=== PATIENT | female | born 1995 | race American Indian/Alaskan Native ===

== ENCOUNTER 2023-08-20 22:15 | Emergency (ER) | payer SELFPAY ==
[2023-08-20 22:21] VITALS: BP 119/70; PULSE 84; RESP 18; TEMP 37.1; O2SAT 100; BMI 21.2
--- NOTE | 2023-08-20 23:48 | ED.RECABL ---
HPI - Recheck/Abnormal Lab/Rx General Chief Complaint: Recheck/Abnormal Lab/Rx Stated Complaint: UTI/RASH Time Seen by Provider: 08/20/23 23:48 Source: patient Mode of arrival: Ambulatory History of Present Illness HPI narrative: 27-year-old woman who was recently diagnosed with lichen simplex chronicus affecting her vagina, bacterial vaginosis and urinary tract infection. She was prescribed metronidazole which she has finished, Keflex which he is completing and given a prescription for triamcinolone 0.1% cream which she left in [place] when she came home today. She is here requesting refill for the triamcinolone cream. She states that the vaginal discharge and dysuria have improved significantly. The triamcinolone cream was helping with the itching and scaling that has been attributed to the lichen simplex chronicus. She is denying fevers, abdominal pain, flank pain. She has paperwork from her visit at the [facility] with diagnoses and medications prescribed. Related Data Previous Rx's Medication Instructions Recorded triamcinolone acetonide 0.1 % 1 applic topical DAILY #15 grams 08/20/23 topical cream Allergies Allergy/AdvReac Type Severity Reaction Status Date / Time No Known Drug Allergies Allergy Verified 08/20/23 22:21 Review of Systems Review of Systems Narrative: Pertinent positive and negative findings as per HPI Patient History Medical History (Updated 08/20/23 @ 23:57 by Marce Sharma MD) Lichen simplex chronicus Social History Smoking Status: Current every day smoker Smoking Status: Current every day smoker tobacco type: vaping Substance Use Type: does not use Exam Initial Vital Signs Initial Vital Signs: Vital Signs Temperature 98.7 F 08/20/23 22:21 Pulse Rate 84 08/20/23 22:21 Respiratory Rate 18 08/20/23 22:21 Blood Pressure 119/70 08/20/23 22:21 Pulse Oximetry 100 08/20/23 22:21 Oxygen Delivery Method Room Air 08/20/23 22:21 General: Alert appropriate in no acute distress Respiratory: Able to speak in full sentences, no obvious respiratory distress Skin: No obvious rashes, warm and dry Neurologic: Grossly intact no obvious asymmetries or abnormalities Psych: appropriate insight and affect, cooperative Course Vital Signs Vital signs: Vital Signs - 8 hr 08/20/23 22:21 Temperature 98.7 F Pulse Rate 84 Respiratory Rate 18 Blood Pressure 119/70 Pulse Oximetry 100 Oxygen Delivery Method Room Air MDM - Recheck/Abnormal Lab/Rx MDM Narrative Medical decision making narrative: 27-year-old woman recently visiting her family in [facility] treated for cystitis, bacterial vaginosis and lichen simplex chronicus. All were improving however when she came home she forgot the triamcinolone cream and presents requesting refill for such. Records from her clinic visit from August 16 are reviewed. Will refill her triamcinolone prescription and asked her to follow up with her primary care provider. She is safe for discharge Discharge Plan Departure Patient Disposition: Home Clinical Impression: Encounter for medication refill, Lichen simplex chronicus Instructions: DI for Lichen Planus Activity Restrictions/Additional Instructions: Thank you for coming in today I am glad that the antibiotics for the bladder infection and bacterial vaginosis been effective. I am also pleased with triamcinolone seems to be effective with the itching that you have been experiencing for the last 3 months. I have sent a prescription to [email or web address] in [place] with a single refill. I would encourage you to follow up with your primary care physician if you find that the symptoms are not improving or return. Prescriptions: New triamcinolone acetonide 0.1 % cream 1 applic topical DAILY Qty: 15 1RF Referrals: Miscellaneous,Doctor, [Primary Care Provider] - Stand Alone Forms: Patient Portal/API
== END 2023-08-21 00:04 | disposition home or self-care (01) ==
PROVIDERS: Emergency Provider Emergency Medicine
DX: L28.0 Lichen simplex chronicus (principal)
CPT/HCPCS: 99281

== ENCOUNTER 2023-11-25 23:43 | Emergency (ER) | payer OTHER, SELFPAY ==
[2023-11-25 23:48] VITALS: BP 125/71; PULSE 110; RESP 20; TEMP 36.7; O2SAT 100; BMI 22.1
--- NOTE | 2023-11-25 23:55 | DI.RAD.S_ITS ---
PROCEDURE: XR FOOT RT MIN 3V INDICATIONS: pain and swelling TECHNIQUE: 3 views of the foot were acquired. COMPARISON: [facility], CR, XR ANKLE RT MIN 3V, 11/26/2023, 0:18. FINDINGS: Bones: No fractures or dislocations. No suspicious bony lesions. Soft tissues: Generalized soft tissue swelling can be seen proximally. IMPRESSION: Generalized soft tissue swelling can be seen proximally. No focal bony abnormality can be seen of the foot. Dictated by: Demar Red M.D. on 11/25/2023 at 23:37 Approved by: Demar Red M.D. on 11/25/2023 at 23:38
--- NOTE | 2023-11-25 23:55 | DI.RAD.S_ITS ---
PROCEDURE: XR ANKLE RT MIN 3V INDICATIONS: pain and swelling TECHNIQUE: 3 views of the ankle were acquired. COMPARISON: [facility], , XR FOOT RT MIN 3V, 11/26/2023, 0:18. FINDINGS: Bones: No fractures or dislocations. Ankle mortise is normally aligned. No suspicious bony lesions. The talar dome demonstrates no maddy abnormality. Soft tissues: Generalized soft tissue swelling can be seen of the ankle. IMPRESSION: Soft tissue swelling is seen, without an acute bony abnormality seen by plain film. If there is point tenderness (or other clinical suspicion for a fracture not seen on these images) then a dedicated CT or a short-term followup plain film series could be considered for further evaluation, as clinically appropriate. Dictated by: Demar Red M.D. on 11/25/2023 at 23:38 Approved by: Demar Red M.D. on 11/25/2023 at 23:38
--- NOTE | 2023-11-26 00:20 | ED.LOWEXIN ---
HPI - Extremity Injury (Lower) General Chief Complaint: Extremity Injury, Lower Stated Complaint: rt ankle pain Time Seen by Provider: 11/25/23 23:45 Source: patient Mode of arrival: Ambulatory History of Present Illness HPI Narrative: 27-year-old female with no reported past medical history presents for 1 week of atraumatic right ankle pain. No medications taken prior to arrival. Has become progressively more painful and so she was presenting for evaluation. Denies accident or injury. Related Data Previous Rx's Medication Instructions Recorded triamcinolone acetonide 0.1 % 1 applic topical DAILY #15 grams 08/20/23 topical cream doxycycline hyclate 100 mg capsule 100 mg PO BID #14 caps 11/26/23 Allergies Allergy/AdvReac Type Severity Reaction Status Date / Time No Known Drug Allergies Allergy Verified 08/20/23 22:21 Review of Systems Review of Systems Narrative: See HPI Patient History Medical History Lichen simplex chronicus Social History Smoking Status: Current every day smoker Smoking Status: Current every day smoker tobacco type: vaping Substance Use Type: does not use Exam Initial Vital Signs Initial Vital Signs: Vital Signs Temperature 98.1 F 11/25/23 23:48 Pulse Rate 110 H 11/25/23 23:48 Respiratory Rate 20 11/25/23 23:48 Blood Pressure 125/71 11/25/23 23:48 Pulse Oximetry 100 11/25/23 23:48 Oxygen Delivery Method Room Air 11/25/23 23:48 Const: Awake, alert, no acute distress, nontoxic appearing Cardiac: regular rate, regular rhythm RESP: unlabored, clear bilaterally, no wheezing GI: Soft, nontender, nondistended, no rebound, no guarding MSK: swelling R ankle particularly over lateral ankle. Tender to palpation medial ankle Skin: Bilateral tender nodular lesions on lower extremities extending to mid thigh. No rash or lesions on any other part of body Neuro: AO x3, CN II-XII grossly intact, moves all extremities Course Orders Ordered: Discontinued Medications Ketorolac Tromethamine (Ketorolac 30 Mg/Ml Vial) 30 mg IM NOW ONE Stop: 11/26/23 04:40 Last Admin: 11/26/23 04:52 Dose: 30 mg Documented By: Vital Signs Vital signs: Vital Signs - 8 hr 11/25/23 23:48 11/26/23 05:31 Temperature 98.1 F Pulse Rate 110 H 94 H Respiratory Rate 20 16 Blood Pressure 125/71 106/57 L Pulse Oximetry 100 97 Oxygen Delivery Method Room Air Room Air MDM - Extremity Injury (Lower) Differential Diagnosis Differential diagnosis: Likely ankle sprain and strain, acute internal derangement of knee and fracture of femur Lab Data 11/26/23 00:33 11/26/23 00:33 Labs: Lab Results 11/26/23 11/26/23 11/26/23 Range/Units 00:33 01:21 03:17 WBC 12.2 H (4.5-11.0) X10^3/uL RBC 4.04 (4.0-5.2) X10^6/uL Hgb 11.7 L (12.0-16.0) g/dL Hct 35.2 L (36-46) % MCV 87.1 (80-100) fL MCH 28.9 (26-34) PG MCHC 33.2 (30-36) % RDW 12.9 (11.6-14.8) % Plt Count 354 (150-400) X10^3/uL Neut % (Auto) 76.8 H (50-75) % Lymph % (Auto) 12.9 L (25-40) % [place] % (Auto) 9.3 (3-14) % Eos % (Auto) 0.8 L (2-4) % Baso % (Auto) 0.2 (0-2) % Neut # (Auto) 9400 H (9594-8518) /uL Lymph # (Auto) 1600 (4372-2951) /uL [place] # (Auto) 1100 H (0-900) /uL Eos # (Auto) 100 (0-450) /uL Baso # (Auto) 0 (0-100) /uL ESR 46 H (0-20) MM/HR Sodium 137 (137-145) mmol/L Potassium 4.1 (3.4-5.1) mmol/L Chloride 105 (98-107) mmol/L Carbon Dioxide 30 (22-32) mmol/L BUN 16 (7-17) mg/dL Creatinine 0.65 (0.52-1.04) mg/dL Estimated GFR > 60 (>60) mL/min BUN/Creatinine Ratio 24.6 H (6-22) Glucose 113 H (70-100) mg/dL Calcium 8.7 (8.4-10.2) mg/dL Total Bilirubin 0.5 (0.2-1.3) mg/dL AST 30 (14-36) IU/L ALT 17 (<35) IU/L Alkaline Phosphatase 65 (38-126) U/L C-Reactive Protein 4.6 H (<1.0) mg/dL Total Protein 7.6 (6.3-8.2) g/dL Albumin 3.7 (3.5-5.0) g/dL Globulin 3.9 (1.7-4.1) g/dL Albumin/Globulin Ratio 0.9 L (1.0-2.8) Procalcitonin 0.08 (<0.5) ng/mL Urine RBC None seen (0-5/HPF) Urine WBC 0-1/hpf (0-5/HPF) Ur Squamous Epith Cells 10-30 /hpf H (0-5/HPF) Urine Bacteria Moderate (10-30) H (None) Ur Culture Indicated? Cult not indicated Vol Urine Centrifuged 10ml (spun) Ur Chlamydia DNA (PCR) Detected H N gonorrhoeae DNA (PCR) Not detected Point of Care Testing Test Results Negative Urine Dip Bedside Urine Glucose Negative Bedside Urine Bilirubin - Negative Bedside Urine Ketone - Negative Urine Specific [place] 1.020 Bedside Urine Occult Blood - Negative Bedside Urine pH 6.0 Bedside Urine Protein - Negative Bedside Urine Urobilinogen - Negative Bedside Urine Nitrite - Negative Bedside Urine Leukocytes +/- 15 Esterase MDM Narrative Medical decision making narrative: Nontoxic appearing patient with atraumatic ankle pain and swelling. Patient has seems to have extensive painful nodules over her bilateral lower extremities up into the mid thigh. Rash appears similar to erythema nodosum in appearance. Laboratory work an inflammatory markers ordered. Laboratory work shows mild leukocytosis, elevated sed rate and elevated CRP. On further review of system patient has had concerns for STIs with urinary frequency recently. Urinalysis is negative for signs of infection, but urine tested positive for chlamydia. This is likely leading to patient's rash and ankle pain. Patient was counseled on her diagnosis, antibiotics sent to pharmacy of choice. She was advised to take Tylenol and Motrin as needed for pain and to inform her previous sexual partners of her diagnosis. Discharge Plan Departure Patient Disposition: Home Clinical Impression: Erythema nodosum, Chlamydia Instructions: DI for Chlamydia, DI for Erythema Nodosum Activity Restrictions/Additional Instructions: Finish all of your antibiotics. Please notify all of your partners from the last 60 days that you have been diagnosed with chlamydia. Avoid sex for the next 7 days to prevent infection from recurring. Prescriptions: New doxycycline hyclate 100 mg capsule 100 mg PO BID Qty: 14 0RF No Action triamcinolone acetonide 0.1 % cream 1 applic topical DAILY Qty: 15 1RF Referrals: Miscellaneous,Doctor, MD [Primary Care Provider] - Stand Alone Forms: Patient Portal/API, Work Release Note
[2023-11-26 00:41] LABS: Add Manual Diff / Slide Review NO; Basophils Absolute Auto 0 /uL (0-100); Basophils Percent Auto 0.2 % (0-2); Eosinophils Absolute Auto 100 /uL (0-450); Eosinophils Percent Auto 0.8 % (2-4); Hematocrit 35.2 % (36-46); Hemoglobin 11.7 g/dL (12.0-16.0); Lymphocytes Absolute Auto 1600 /uL (1100-4500); Lymphocytes Percent Auto 12.9 % (25-40); Mean Corpuscular HGB Conc 33.2 % (30-36); Mean Corpuscular Hemoglobin 28.9 PG (26-34); Mean Corpuscular Volume 87.1 fL (80-100); Monocytes Absolute Auto 1100 /uL (0-900); Monocytes Percent Auto 9.3 % (3-14); Neutrophils Absolute Auto 9400 /uL (1500-7000); Neutrophils Percent Auto 76.8 % (50-75); Platelet Count 354 X10^3/uL (150-400); Red Blood Cell Count 4.04 X10^6/uL (4.0-5.2); Red Cell Distribution Width 12.9 % (11.6-14.8); White Blood Cell Count 12.2 X10^3/uL (4.5-11.0)
[2023-11-26 00:57] LABS: Alanine Aminotransferase 17 IU/L (<35); Albumin 3.7 g/dL (3.5-5.0); Albumin Globulin Ratio 0.9 (1.0-2.8); Alkaline Phosphatase 65 U/L (38-126); Aspartate Aminotransferase 30 IU/L (14-36); BUN Creatinine Ratio 24.6 (6-22); Bilirubin Total 0.5 mg/dL (0.2-1.3); Blood Urea Nitrogen 16 mg/dL (7-17); Calcium 8.7 mg/dL (8.4-10.2); Carbon Dioxide 30 mmol/L (22-32); Chloride 105 mmol/L (98-107); Estimated Glomerular Filt Rate > 60 mL/min (>60); Globulin 3.9 g/dL (1.7-4.1); Glucose 113 mg/dL (70-100); HEMOLYSIS 39 (0-50); Potassium 4.1 mmol/L (3.4-5.1); Sodium 137 mmol/L (137-145); Total Protein 7.6 g/dL (6.3-8.2)
[2023-11-26 01:13] LABS: Procalcitonin 0.08 ng/mL (<0.5)
[2023-11-26 01:33] LABS: C-Reactive Protein Quant 4.6 mg/dL (<1.0)
[2023-11-26 01:41] LABS: Erythrocyte Sedimentation Rate 46 MM/HR (0-20)
[2023-11-26 03:59] LABS: Bacteria Urine Moderate (10-30); Culture Indicated Urine Cult Not Indicated; RBC Urine None Seen (0-5/HPF); Squamous Epithelial Cell Urine 10-30 /HPF (0-5/HPF); Urine Volume 10mL (spun); WBC Urine 0-1/HPF (0-5/HPF)
[2023-11-26] MEDS: KETOROLAC 30 MG/ML VIAL IM (04:52)
[2023-11-26 05:10] LABS: Urine N gonorrhoeae NOT DETECTED
[2023-11-26 05:13] LABS: Urine Chlamydia DETECTED
[2023-11-26 05:31] VITALS: BP 106/57; PULSE 94; RESP 16; O2SAT 97
== END 2023-11-26 05:38 | disposition home or self-care (01) ==
PROVIDERS: Emergency Provider Emergency Medicine
DX: L52 Erythema nodosum (principal); A74.9 Chlamydial infection, unspecified
CPT/HCPCS: 73610; 73630; 80053; 81003; 81015; 81025; 84145; 85025; 85651; 86140; 87491; 87591; 96372; 99283; 99284; J1885

== ENCOUNTER 2024-06-14 23:43 | Emergency (ER) | payer SELFPAY ==
--- NOTE | 2024-06-14 23:51 | ED.GENADULT ---
HPI - General Adult General Chief complaint: Urogenital-Female Stated complaint: possible uti or yeast infection Time Seen by Provider: 06/14/24 23:51 History of Present Illness HPI narrative: 28-year-old female complains of 2 weeks duration intermittent dysuria and frequency of urination. Some back discomfort intermittently. No fevers or chills. Does not recall any history of kidney stones. No injury or trauma new activities. Last menstrual period completed last week was on time and normal. Denies chest pain shortness of breath cough. Denies headache facial pain, neck pain. Denies abdominal discomfort. Denies nausea and vomiting, denies loose stools, denies black or red stools. Related Data Previous Rx's Medication Instructions Recorded triamcinolone acetonide 0.1 % 1 applic topical DAILY #15 grams 08/20/23 topical cream doxycycline hyclate 100 mg capsule 100 mg PO BID #14 caps 11/26/23 nitrofurantoin 100 mg PO Q12H 7 days #14 caps 06/15/24 monohydrate/macrocrystals 100 mg capsule (Macrobid) phenazopyridine 200 mg tablet 200 mg PO TID PRN pain #10 tabs 06/15/24 (Pyridium) Allergies Allergy/AdvReac Type Severity Reaction Status Date / Time No Known Drug Allergies Allergy Verified 08/20/23 22:21 Review of Systems Review of Systems Narrative: See HPI Patient History Medical History Lichen simplex chronicus Social History Smoking Status: Current every day smoker Smoking Status: Current every day smoker tobacco type: vaping Substance Use Type: does not use Exam Narrative Exam Narrative: GENERAL: Well-developed patient, in mild distress. HEAD: Atraumatic. Normocephalic. EYES: Pupils equal round and reactive. Extraocular motions intact. No scleral icterus. No injection or drainage. ENT: Nose without bleeding, purulent drainage. Throat without erythema, tonsillar hypertrophy or exudate. Airway patent. NECK: Trachea midline. Non tender CARDIOVASCULAR: Regular rate and rhythm without murmurs, gallops, or rubs. RESPIRATORY: Clear to auscultation. Breath sounds equal bilaterally. No wheezes, rales, or rhonchi. GASTROINTESTINAL: Abdomen soft, non-tender, nondistended. EXTREMITIES: No edema or joint tenderness. BACK: Nontender without deformity or crepitance. No flank tenderness. NEURO: AOx3. Motor functions grossly nonfocal SKIN: No rash or erythema of visible areas Initial Vital Signs Initial Vital Signs: Vital Signs Temperature 97.5 F L 06/14/24 23:54 Pulse Rate 85 06/14/24 23:54 Respiratory Rate 16 06/14/24 23:54 Blood Pressure 127/80 06/14/24 23:54 Pulse Oximetry 99 06/14/24 23:54 Oxygen Delivery Method Room Air 06/14/24 23:54 Course Orders Ordered: ED Orders 06/14/24 23:54 Urine Culture Stat 06/14/24 23:59 Ictotest Urine Stat 06/15/24 00:04 Urine Microscopic Stat Discontinued Medications Nitrofurantoin Macrocrystals (Nitrofurantoin Er 100 Mg Capsule) 100 mg PO NOW ONE Stop: 06/15/24 00:34 Last Admin: 06/15/24 00:41 Dose: 100 mg Phenazopyridine HCl (Phenazopyridine 100 Mg Tablet) 200 mg PO NOW ONE Stop: 06/15/24 00:34 Last Admin: 06/15/24 00:41 Dose: 200 mg Vital Signs Vital signs: Vital Signs - 8 hr 06/14/24 23:54 Temperature 97.5 F L Pulse Rate 85 Respiratory Rate 16 Blood Pressure 127/80 Pulse Oximetry 99 Oxygen Delivery Method Room Air Medical Decision Making Lab Data Lab results reviewed: Yes I reviewed the patient's lab results. Lab results narrative: Urine dip positive, many bacteria noted, urine culture requested. Labs: Lab Results 06/14/24 Range/Units 23:54 Ur Bilirubin Confirm Negative (Negative) Urine RBC 0-1/hpf (0-5/HPF) Urine WBC 1-5/hpf (0-5/HPF) Ur Squamous Epith Cells >30 /hpf H (0-5/HPF) Urine Bacteria Many (>30) H (None) Urine Mucus 3+ H (Negative) Ur Culture Indicated? Specimen cultured Vol Urine Centrifuged 10ml (spun) Point of Care Testing Test Results Negative Urine Dip Bedside Urine Glucose Negative Bedside Urine Bilirubin + 1 Bedside Urine Ketone +/- 5 Urine Specific [place] 1.030 Bedside Urine Occult Blood - Negative Bedside Urine pH 5.5 Bedside Urine Protein + 30 Bedside Urine Urobilinogen - Negative Bedside Urine Nitrite - Negative Bedside Urine Leukocytes + 70 Esterase Point of care testing: Point of Care Testing Test Results Negative Urine Dip Bedside Urine Glucose Negative Bedside Urine Bilirubin + 1 Bedside Urine Ketone +/- 5 Urine Specific [place] 1.030 Bedside Urine Occult Blood - Negative Bedside Urine pH 5.5 Bedside Urine Protein + 30 Bedside Urine Urobilinogen - Negative Bedside Urine Nitrite - Negative Bedside Urine Leukocytes + 70 Esterase MDM Narrative Medical decision making narrative: 28-year-old female with dysuria and frequency of urination, history of prior urine infections, not recently on antibiotics. Afebrile, sirs screen negative. Abdominal exam benign. Urine test negative. Urinalysis results are pending. Urine dip positive, urinalysis shows many bacteria, urine culture pending. No fever, no CVA tenderness. Oral nitrofurantoin dose given now, prescription sent to our further course to her pharmacy. Oral Pyridium for urinary analgesia discomfort control. Encouraged to drink plenty of fluids. Recheck with your regular doctor advised Tuesday. Return precautions discussed Discharge Plan Departure Patient Disposition: Home Clinical Impression: Urinary tract infection Instructions: DI for Urinary Tract Infection (UTI) Activity Restrictions/Additional Instructions: Frequency and discomfort with urination noted, no fever, no tenderness to the flanks on examination. Urine test negative. Urinalysis suspicious for infection, urine culture requested. First oral dose nitrofurantoin antibiotic given, prescription sent to your pharmacy for further course. Drink plenty of fluids. Recheck symptoms with your regular doctor if not improved on Tuesday. Return to this/nearest emergency department for any change worsening symptoms or any concerns prior Prescriptions: New nitrofurantoin monohyd/m-cryst [Macrobid] 100 mg capsule 100 mg PO Q12H 7 Days Qty: 14 0RF Rx Instructions: must administer with a meal/food phenazopyridine [Pyridium] 200 mg tablet 200 mg PO TID PRN (Reason: pain) Qty: 10 0RF No Action triamcinolone acetonide 0.1 % cream 1 applic topical DAILY Qty: 15 1RF doxycycline hyclate 100 mg capsule 100 mg PO BID Qty: 14 0RF Referrals: Miscellaneous,DoctorMD [Primary Care Provider] - Stand Alone Forms: Patient Portal/API
[2024-06-14 23:54] VITALS: BP 127/80; PULSE 85; RESP 16; TEMP 36.4; O2SAT 99; BMI 23.9
[2024-06-15 00:09] LABS: Ictotest Urine Negative (Negative)
[2024-06-15 00:25] LABS: Bacteria Urine Many (>30); Mucus Urine 3+ (Negative); RBC Urine 0-1/HPF (0-5/HPF); Squamous Epithelial Cell Urine >30 /HPF (0-5/HPF); Urine Volume 10mL (spun); WBC Urine 1-5/HPF (0-5/HPF)
[2024-06-15 00:26] LABS: Culture Indicated Urine Specimen Cultured
[2024-06-15] MEDS: PHENAZOPYRIDINE 100 MG TABLET 200 MG PO (00:41)
[2024-06-15] MEDS: NITROFURANTOIN ER 100 MG CAPSULE PO (00:41)
== END 2024-06-15 00:44 | disposition home or self-care (01) ==
PROVIDERS: Emergency Provider Emergency Medicine
DX: N39.0 Urinary tract infection, site not specified (principal)
CPT/HCPCS: 81003; 81015; 81025; 87086; 99283